=== PATIENT | male | born 1985 | race Two or more races ===

== ENCOUNTER → 2024-05-16 13:28 | Outpatient (REF) | payer OTHER, SELFPAY | LOC: RCS 13:28 | PROVIDERS: ATTENDING PHYSICIAN Physician Assistant | DX: Z01.818 Encounter for other preprocedural examination (principal); M54.12 Radiculopathy, cervical region | CPT/HCPCS: 93005 ==

== ENCOUNTER → 2024-06-26 13:39 | Outpatient (REF) | payer OTHER, SELFPAY | LOC: RAD 13:39 | PROVIDERS: ATTENDING PHYSICIAN Nurse Practitioner; FAMILY PHYSICIAN Physician Assistant | DX: M54.2 Cervicalgia (principal); M54.12 Radiculopathy, cervical region | CPT/HCPCS: 72040 ==

== ENCOUNTER 2024-08-18 15:42 | Outpatient (RCR) | payer OTHER, SELFPAY | END 2024-08-18 23:59 | disposition home or self-care (01) | LOC: RPT 15:42 | PROVIDERS: ATTENDING PHYSICIAN Neurological Surgery; FAMILY PHYSICIAN Physician Assistant | DX: Z47.89 Encounter for other orthopedic aftercare (principal); M54.12 Radiculopathy, cervical region; Z73.6 Limitation of activities due to disability; M62.81 Muscle weakness (generalized); M43.22 Fusion of spine, cervical region | CPT/HCPCS: 97112; 97162 ==

== ENCOUNTER 2024-09-04 17:01 | Outpatient (RCR) | payer OTHER, SELFPAY | END 2024-09-04 23:59 | disposition home or self-care (01) | LOC: RPT 17:01 | PROVIDERS: ATTENDING PHYSICIAN Neurological Surgery; FAMILY PHYSICIAN Physician Assistant | DX: Z47.89 Encounter for other orthopedic aftercare (principal); M54.12 Radiculopathy, cervical region; Z73.6 Limitation of activities due to disability; M62.81 Muscle weakness (generalized); M43.22 Fusion of spine, cervical region | CPT/HCPCS: 97112 ==

== ENCOUNTER 2024-09-25 17:01 | Outpatient (RCR) | payer OTHER, SELFPAY | END 2024-09-25 23:59 | disposition home or self-care (01) | LOC: RPT 17:01 | PROVIDERS: ATTENDING PHYSICIAN Neurological Surgery; FAMILY PHYSICIAN Physician Assistant | DX: Z47.89 Encounter for other orthopedic aftercare (principal); M54.12 Radiculopathy, cervical region; Z73.6 Limitation of activities due to disability; M62.81 Muscle weakness (generalized); M43.22 Fusion of spine, cervical region | CPT/HCPCS: 97110; 97112 ==